=== PATIENT | female | born 1995 | race Caucasian/White ===

== ENCOUNTER 2019-01-28 21:57 | Emergency (ER) | payer OTHER ==
[~2019-01-28] VITALS: Ht 154.9 cm; Wt 55.3 kg
[2019-01-28 22:10] VITALS: BP 113/73
[2019-01-29] MEDS ORDERED: NACL 0.9% 1,000 ML IV ONE (00:35)
[2019-01-29] MEDS ORDERED: KETOROLAC 30 MG/ML VIAL IVP ONE (00:35)
[2019-01-29 01:05] LABS: APPEARANCE,URINE HAZY (CLEAR); BILIRUBIN,URINE 1+ (NEGATIVE); BLOOD, URINE 3+ (NEGATIVE); COLOR,URINE YELLOW (YELLOW); LEUKOCYTE ESTERASE ,URINE NEGATIVE (NEGATIVE); NITRITE, URINE NEGATIVE (NEGATIVE); PH,URINE 5.5 (5.0-9.0); UGLUCOSE NEGATIVE (NEGATIVE)
[2019-01-29 01:25] LABS: ALBUMIN 4.5 g/dL (3.4-5.0); ANION GAP 14.8 (8-16); CARBON DIOXIDE 26.9 mmol/L (21-32); CREATININE 0.7 mg/dL (0.6-1.3); POTASSIUM 3.7 mmol/L (3.5-5.1); TOTAL BILIRUBIN 0.6 mg/dL (0.0-1.0)
[2019-01-29 01:31] LABS: RBC,URINE 11-20 (MOD) /HPF (0-5); WBC,URINE NONE SEEN /HPF (0-5)
[2019-01-29 02:33] VITALS: BP 118/69
== END 2019-01-29 02:33 | disposition home or self-care (01) ==
LOC: MED 21:57
DX: T62.91XA Toxic effect of unspecified noxious substance eaten as food, accidental (unintentional), initial encounter (principal); R11.2 Nausea with vomiting, unspecified; Y92.89 Other specified places as the place of occurrence of the external cause
CPT/HCPCS: 36415; 80053; 81001; 96361; 96374; 99283; J1885; J7030